=== PATIENT | female | born 1960 | race American Indian/Alaskan Native ===

== ENCOUNTER 2021-04-21 10:15 | Outpatient (CLI) | payer OTHER ==
--- NOTE | 2021-04-21 11:25 | XRay Report ---
) 2 views INDICATION: Foot pain FINDINGS: MTP joints and IP joints appear normal. Calcaneal spurring is seen. Midfoot alignment appea rs normal. No acute findings. Signer Name: Ramo Orozco MD Signed: 04/21/2021 11:20 AM Workstation Name: [id number]
== END 2021-04-21 10:16 | disposition home or self-care (01) ==
LOC: XRAY 10:15
PROVIDERS: ATTEND Internal Medicine
DX: M77.31 Calcaneal spur, right foot (principal)